=== PATIENT | female | born 1990 | race Caucasian/White ===

== ENCOUNTER 2021-10-30 08:48 | Outpatient (CLI) | payer OTHER, SELFPAY ==
--- NOTE | ~2021-10-30 | MMUS_ITS ---
EXAMINATION: MM diagnostic luca BI w donaldo, US breast LT limited HISTORY: Left inferior breast pain and left nipple discharge TECHNIQUE: Craniocaudal, mediolateral, and mediolateral oblique 3-D tomosynthesis images of the breas ts were performed and synthetic 2-D images were generated. CAD analysis was submitted and interpreted . High resolution limited left breast ultrasound was performed. COMPARISON: 02/21/2015 BREAST PARENCHYMAL COMPOSITION: There are scattered areas of fibroglandular density. FINDINGS: MAMMOGRAPHIC FINDINGS: There is no evidence of suspicious mass, calcification, or architectural distortion in either breast to suggest malignancy. There has been no suspicious interval change. No mammographic correlate is id entified for the patient's reported left breast pain or left nipple discharge. ULTRASOUND: There is a stable intramammary lymph node at the 3:00 location 4 cm from the nipple. No suspicious cy stic or solid mass is identified. No sonographic correlate is identified for the patient's left breas t pain or nipple discharge. IMPRESSION: 1. No specific mammographic or sonographic correlate is identified for the patient's left breast pain or left nipple discharge. Further evaluation at this time should be based on clinical assessment. Co ntinued follow-up physical examination is recommended. 2. Recommend routine screening mammography beginning at age 40. BI-RADS Category 2: Benign finding(s). Reviewed, dictated and finalized at location A. STANT RESEARCH SCIENTIST IMPRESSION: 1. No specific mammographic or sonographic correlate is identified for the reema ent's left breast pain or left nipple discharge. Further evaluation at this smith e should be based on clinical assessment. Continued follow-up physical examinat ion is recommended. 2. Recommend routine screening mammography beginning at age 40. BI-RADS Category 2: Benign finding(s).
== END 2021-10-30 08:49 ==
PROVIDERS: Visit Provider Advanced Practice Midwife
DX: N64.52 Nipple discharge (principal)
CPT/HCPCS: 76642; 77062; 77066; G0279

== ENCOUNTER 2021-11-21 15:59 | Emergency (ER) | payer OTHER, SELFPAY ==
--- NOTE | ~2021-11-21 | CT_ITS ---
EXAMINATION: CT abdomen pelvis wo con DATE: 11/21/2021 20:16 INDICATION: Right flank pain for one week. Hematuria. TECHNIQUE: Computed tomography (CT) of the abdomen and pelvis was performed without intravenous contr ast. Automated exposure control and iterative reconstruction technique were employed. Exam dose: 440 .79 mGy-cm total exam DLP. COMPARISON: 05/25/2017 CT abdomen pelvis with IV contrast material FINDINGS: The lung bases are clear. Normal heart size. No pericardial or pleural effusion. The liver, gallbladder, bile ducts, pancreas and pancreatic duct are unremarkable. Splenic size is wi thin normal range. No adrenal mass lesion. No urinary tract calculus or hydroureteronephrosis. No renal mass lesion. The urinary bladder, uterus and adnexal areas are unremarkable. Normal caliber of the abdominal aorta. No intraperitoneal or retroperitoneal or pelvic mass lesion or adenopathy or ascites. Normal appendix. No bowel obstruction or intraperitoneal free air. Very small fat-containing umbilical hernia. Mild bilateral hip osteoarthritis. No suspicious osteolytic or osteoblastic lesions. IMPRESSION: No urinary tract calculus or hydroureteronephrosis Normal appendix Reviewed, dictated and finalized at [facility]. Reviewed, dictated and finalized at location A. E SHIFTER
[2021-11-21 16:01] VITALS: BP 125/81; PULSE 92; RESP 15; TEMP 37.1; O2SAT 99
--- NOTE | 2021-11-21 18:55 | ED.GENADULT ---
HPI - General Adult General Chief complaint: Urogenital-Female Stated complaint: poss kidney infection Time Seen by Provider: 11/21/21 18:35 History of Present Illness HPI narrative: 31-year-old female presenting to the emergency department for evaluation of back pain for approximately 1 week and burning urination for the last few days. 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 Patient was referred to the emergency department for further work-up. Patient was not started on antibiotics from the [employer] office. Patient reports he did have Covid in the beginning of the year. Patient states today she did develop some cough and some nasal congestion. Patient states she did not have any of the symptoms with her recent Covid infection. Related Data Allergies Allergy/AdvReac Type Severity Reaction Status Date / Time No Known Allergies Allergy Verified 11/04/18 18:25 Review of Systems Review of Systems: CONSTITUTIONAL: Denies fever, chills, or sweats. EYES: Denies visual changes, redness, or discharge. ENT: Denies rhinorrhea, congestion, sore throat, or otalgia. CARDIOVASCULAR: Denies chest pain, palpitations, or edema. RESPIRATORY: Denies cough or dyspnea. GASTROINTESTINAL: Denies abdominal pain, nausea, vomiting, or diarrhea. GENITOURINARY: Flank pain and burning with urination SKIN: Denies rash or itching. MUSCULOSKELETAL: Denies back pain, joint pain, or myalgia. NEUROLOGIC: Denies headache, numbness, or weakness. PSYCHIATRIC: Denies anxiety or depression. Exam Narrative: APPEARANCE: Well appearing, no pain, no distress, well-nourished. HEAD: normocephalic, atraumatic. EYES: PERRLA/EOMI, conjunctivae clear. NECK: Supple. No adenopathy, no masses. RESPIRATORY: Airway patent, respirations nonlabored. Clear to auscultation bilaterally, no rales, rhonchi, wheezing. CARDIOVASCULAR: Regular rate and rhythm without murmurs rubs or gallops. ABDOMINAL: Reproducible flank pain to percussion MUSCULOSKELETAL: Moves all extremities. . NEURO: Alert. Cranial nerves II through XII intact. SKIN: Warm, dry. Normal Color Course Course Emergency Course: Patient did have some hematuria. Patient was complaining of intermittent sharp flank pain so a CT to rule out ureteral calculi was ordered. CT showed no evidence of ureteral calculi. Patient was updated the results of the imaging and labs. Patient will be started on antibiotics for a presumed urinary tract infection. Urine culture is pending. All questions and concerns were addressed. Vital Signs Vital signs: Vital Signs Temperature 98.7 F 11/21/21 16:01 Pulse Rate 92 11/21/21 16:01 Respiratory Rate 15 11/21/21 16:01 Blood Pressure 125/81 11/21/21 16:01 Pulse Oximetry 99 11/21/21 16:01 Temperature 98.7 F 11/21/21 16:01 Pulse Rate 96 11/21/21 19:36 Respiratory Rate 18 11/21/21 19:36 Blood Pressure 132/74 11/21/21 19:36 Pulse Oximetry 99 11/21/21 19:36 Medical Decision Making Vital Signs Vital Signs: Vital Signs Temperature 98.7 F 11/21/21 16:01 Pulse Rate 92 11/21/21 16:01 Respiratory Rate 15 11/21/21 16:01 Blood Pressure 125/81 11/21/21 16:01 Pulse Oximetry 99 11/21/21 16:01 Temperature 98.7 F 11/21/21 16:01 Pulse Rate 96 11/21/21 19:36 Respiratory Rate 18 11/21/21 19:36 Blood Pressure 132/74 11/21/21 19:36 Pulse Oximetry 99 11/21/21 19:36 Lab Data Lab results reviewed: Yes I reviewed the patient's lab results. Result diagrams: 11/21/21 19:28 11/21/21 19:28 Labs: Lab Results 11/21/21 11/21/21 11/21/21 Range/Units 19:28 19:28 19:29 WBC 8.4 (4.5-10.0) K/mm3 RBC 4.20 (4.2-5.4) M/mm3 Hgb 11.3 L (12.0-15.0) g/dL Hct 34.9 L (37.0-47.0) % MCV 83.1 (80-100) fl MCH 26.9 (26-34) pg MCHC 32.4 (32-36) g/dl RDW 14.8 H (11.5-14.5) % Plt Count 220 (150-375) k/mm3 MPV
[2021-11-21 19:36] VITALS: BP 132/74; PULSE 96; RESP 18; O2SAT 99
[2021-11-21 19:41] LABS: Basophils Percent Auto 0.5 % (0.2-1.2); Eosinophils Absolute Auto 0.1 K/mm3 (0-0.3); Eosinophils Percent Auto 0.8 % (0-4.4); Hematocrit 34.9 % (37.0-47.0); Hemoglobin 11.3 g/dL (12.0-15.0); Immature Granulocyte Absolute 0.03 K/mm3 (0.00-0.031); Immature Granulocyte Percent A 0.4 % (0-0.5); Lymphocytes Absolute Auto 1.58 K/mm3 (0.9-3.2); Lymphocytes Percent Auto 18.7 % (18.3-44.2); Mean Corpuscular HGB Conc 32.4 g/dl (32-36); Mean Corpuscular Hemoglobin 26.9 pg (26-34); Mean Corpuscular Volume 83.1 fl (80-100); Mean Platelet Volume 9.3 fl (7.4-10.4); Neutrophils Absolute Auto 5.7 K/mm3 (1.3-6.7); Neutrophils Percent Auto 67.6 % (45.5-73.1); Platelet Count Result 220 k/mm3 (150-375); Red Cell Distribution Width 14.8 % (11.5-14.5); White Blood Count 8.4 K/mm3 (4.5-10.0)
[2021-11-21 19:49] LABS: Add Urine Microscopic? YES; Appearance Urine Cloudy (Clear); Bilirubin Urine Negative (Negative); Blood Urine Negative (Negative); Color Urine Yellow (Yellow); Glucose Urine UA Negative (Negative); Ketones Urine Trace mg/dL (Negative); Leukocyte Esterase Ur 3+ LEU/UL (Negative); Mucus Urine Rare /lpf; Nitrate Urine Negative (Negative); Protein Urine Negative (Negative); Specific Grav Ur 1.006 (1.001-1.035); Squamous Epithelial Cell Urine Occasional /hpf (Few); Urobilinogen Urine Negative mg/dL (<2.0); WBC Urine >75 /hpf
[2021-11-21 19:53] LABS: Alanine Aminotransferase 20 U/L (4-35); Albumin Level 4.3 g/dL (3.5-5.1); Alkaline Phosphatase 72 U/L (38-126); Anion Gap 8 mmol/L (8-16); Aspartate Amino Transferase 29 U/L (14-36); Bilirubin,Total 0.5 mg/dL (0.2-1.3); Blood Urea Nitrogen 7 mg/dL (7-17); Calcium 9.3 mg/dL (8.4-10.2); Carbon Dioxide 29 mmol/L (22-30); Chloride 99 mmol/L (98-107); Estimated CRCL calculation 80 ml/min; Estimated Glomerular Filt Rate > 60; Glucose 101 mg/dL (65-110); Potassium 4.1 mmol/L (3.4-5.0); Sodium 136 mmol/L (137-145)
[2021-11-21] MEDS: CEPHALEXIN 500 MG CAPSULE PO (20:26)
[2021-11-21] MEDS: PHENAZOPYRIDINE HCL 100 MG TABLET PO (20:26)
== END 2021-11-21 21:07 | disposition home or self-care (01) ==
PROVIDERS: Emergency Provider Emergency Medicine; PCP Family Medicine
DX: N39.0 Urinary tract infection, site not specified (principal)
CPT/HCPCS: 36415; 74176; 80053; 81001; 81025; 85025; 87077; 87086; 87186; 99284; A9270

== ENCOUNTER → 2022-10-14 09:13 | Outpatient (CLI) | payer OTHER, SELFPAY ==
--- NOTE | ~2022-10-14 | MMUS_ITS ---
EXAMINATION: MM diagnostic luca BI w donaldo, US breast LT limited HISTORY: Probable left breast abnormality. TECHNIQUE: Additional 3-D tomosynthesis images of the breasts were performed and synthetic 2-D images were generated. CAD analysis was submitted and interpreted. High resolution Limited left breast ultr asound was performed. COMPARISON: Comparison to multiple prior studies sequentially, with oldest reviewed study dated 02/21. BREAST PARENCHYMAL COMPOSITION: The breasts are heterogeneously dense, which may obscure small masses . FINDINGS: MAMMOGRAPHIC FINDINGS: There are no suspicious masses, calcifications or architectural distortion in either breast to sugges t malignancy. ULTRASOUND: Limited left breast ultrasound: No discrete mass identified in the area of palpable concern. Near the areola there is a 4 mm cyst. IMPRESSION: 1. No evidence for malignancy in either breast. 2. Routine yearly screening mammogram and regular clinical breast examination are recommended. BI-RADS Category 2: Benign finding(s). Reviewed, dictated and finalized at location A. CERTIFICATION SPECIALIST IMPRESSION: 1. No evidence for malignancy in either breast. 2. Routine yearly screening mammogram and regular clinical breast examination a re recommended. BI-RADS Category 2: Benign finding(s).
== END ==
PROVIDERS: PCP Family Medicine; Visit Provider Nurse Practitioner
DX: N63.0 Unspecified lump in unspecified breast (principal)
CPT/HCPCS: 76642; 77062; 77066; G0279

== ENCOUNTER 2025-02-02 09:35 | Emergency (ER) | payer OTHER, SELFPAY ==
[2025-02-02 09:48] VITALS: BP 123/79; PULSE 60; RESP 18; TEMP 36.6; O2SAT 100
--- NOTE | 2025-02-02 10:01 | ED.URI ---
HPI - URI/Sore Throat General Chief Complaint: Upper Respiratory Infection Stated Complaint: sinus infection/head swelling Time Seen by Provider: 02/02/25 10:01 Source: patient Mode of arrival: ambulatory Limitations: no limitations History of Present Illness HPI Narrative: 35-year-old female presents with complaint of nasal congestion, postnasal drainage for 1 day. Afebrile. Has not taking any [id number] medications to treat congestion. Keep patient concerned she has sinus infection. denies cough, chest congestion. No chest pain or shortness breath. All systems reviewed and negative except as noted above. Related Data Home Medications ?Medication ?Instructions ?Recorded ?Confirmed ?Last Taken ?Type multivitamin 1 tablet PO DAILY 08/04/24 08/04/24 Unknown History Allergies Allergy/AdvReac Type Severity Reaction Status Date / Time No Known Allergies Allergy Verified 02/02/25 09:52 Review of Systems Review of Systems: CONSTITUTIONAL: Denies fever, chills, or sweats. EYES: Denies visual changes, redness, or discharge. ENT: Reports rhinorrhea, congestion, sinus pressure. Denies sore throat, or otalgia. CARDIOVASCULAR: Denies chest pain, palpitations, or edema. RESPIRATORY: Denies cough or dyspnea. GASTROINTESTINAL: Denies abdominal pain, nausea, vomiting, or diarrhea. GENITOURINARY: Denies dysuria or hematuria. SKIN: Denies rash or itching. MUSCULOSKELETAL: Denies back pain, joint pain, or myalgia. NEUROLOGIC: Denies headache, numbness, or weakness. PSYCHIATRIC: Denies anxiety or depression. All other systems reviewed are negative, except as documented in HPI. PMFSH Social History Social History Smoking status: Never smoker Living arrangements: with family Spiritual care concerns: No Comments At time of signature, agree with nursing past medical, surgical, social and family history. There is no relevant family history pertinent to the presenting complaint. Exam Narrative: GENERAL: This is a well-nourished, well-developed patient, in no apparent distress. HEAD: normocephalic, atraumatic. EYES: PERRL. Sclera clear/white. Vision is grossly intact. EARS: External ears normal, auditory canals clear and without drainage, TMs normal without perforation. Hearing grossly intact. NOSE: External nose normal with congestion, clear nasal drainage. No sinus tenderness on palpation THROAT: Mucous membranes moist, postnasal drainage without erythema or swelling NECK: Neck supple, non-tender without lymphadenopathy, masses or thyromegaly. CARDIOVASCULAR: Regular rate and rhythm without murmurs, gallops, or rubs. RESPIRATORY: Clear to auscultation. Breath sounds equal bilaterally. No wheezes, rales, or rhonchi. SKIN: warm, Dry, intact with no suspicious lesions or rash, good texture and turgor. NEURO: awake, alert, and oriented to person, place and time. There were no obvious focal neurologic abnormalities. EXTREMITIES: No joint tenderness, effusion, or edema noted. Course Course Level of Care: Express Care Visit Vital Signs Vital signs: Vital Signs Temperature 36.6 C 02/02/25 09:48 Pulse Rate 60 02/02/25 09:48 Respiratory Rate 18 02/02/25 09:48 Blood Pressure 123/79 02/02/25 09:48 Pulse Oximetry 100 02/02/25 09:48 Oxygen Delivery Room Air 02/02/25 09:48 Temperature 36.6 C 02/02/25 09:48 Pulse Rate 60 02/02/25 09:48 Respiratory Rate 18 02/02/25 09:48 Blood Pressure 123/79 02/02/25 09:48 Pulse Oximetry 100 02/02/25 09:48 Oxygen Delivery Room Air 02/02/25 09:48 reviewed MDM - URI/Sore Throat MDM Narrative Medical decision making narrative: will treat viral sinusitis with steroids. Recommend wmwz-jji-zotoybw decongestant and antihistamine. Please be advised this is a medical document. It is intended for [id number]-jysl communication. It is written in medical language and may contain unfamiliar abbreviations or verbiage. Medical documents are intended to carry relevant information, facts as evident, and the clinical opinion of the practitioner at the time of the encounter. This report may have been done utilizing a voice recognition system. Attempts have been made to correct errors. However, there may be uncorrected grammatical, spelling, and recognition errors present. The file time of this note does not necessarily represent the time of service. Discharge Plan Discharge Clinical Impression: Acute viral sinusitis Patient Disposition: Home Condition: Stable Instructions: Antibiotic Form, Sinusitis (ED) Additional Instructions: your symptoms are viral and may last 10-14 days. Take steroids as prescribed. Continue taking a daily antihistamine such as Claritin or Zyrtec. Use an pqoa-hmx-tuudtyq nasal spray such as Flonase or Nasacort. Use as directed on packaging. Drink at least 64 oz water a day. Place cool mist humidifier in bedroom where you sleep. Follow-up with your primary care physician if symptoms are not improving. Patient Language: Luxembourgish Prescriptions: New methylprednisolone [Medrol (Good)] 4 mg tablets,dose pack See Rx Instructions PO .COMPLEX Qty: 21 0RF Rx Instructions: orally per package directions No Action multivitamin Tablet 1 tablet PO DAILY Follow-up/Referrals: Emilee,Florentino Perrin MD [Primary Care Provider] - Time of Disposition: 10:14
--- OUTSIDE RECORDS SUMMARY | 2025-02-02 10:43 | XMS_ITS | Encounter Summary ---
Author Organization [facility] Healthcare Address [address] [place] [id number] Care Team Providers Care Tour Consultant Name Role Phone Florentino Hebert DO Primary Care Provider + No, Physician Unavailable Encounter Details Date Type Department Care Team ([facility] st Contact Info) Description 01/27/2025 Results Follow-Up [facility] Medical [facility] Primary Care [address] [phone] Florentino Hebert DO [facility] [address] Social History Tobacco Use Types Packs/Day Years Used Date Smoking Tobacco: Former Cigarettes Q uit: 2020 Smokeless Tobacco: Never Alcohol Use Standard Drinks/Week Comments Yes 2 (1 standard drink = 0.6 oz pur e alcohol) AUDIT-C Answer Date Recorded Q1: How often do you have a drink containing alcohol? Never 05/02/2022 Q2: How many drinks containi ng alcohol do you have on a typical day when you are drinking? Patient does not drink Q3: How often do you have si x or more drinks on one occasion? Never 05/02/2022 PHQ-2 Answer Date Recorded PHQ-2 Total Score (If total score is 3 or more points, staff should administer the PHQ-9) 0 12/30/2023 Comments No Sex and Gender Information Value Date Recorded Sex Assigned at Not on file Legal Sex Female 9:37 AM CDT Gender Identity Not on file Sexual Orientation Not on file documented as of this encounter Plan of Treatment Not on file documented as of this encounter Visit Diagnoses Not on filedocumented in this encounter Care Teams Tour Consultant Relationship Specialty Start Date End Date Florentino Hebert DO [address] [address] PCP - General Family Medicine 01/23/22 No, Physician 11/21/21 documented as of this encounter
--- OUTSIDE RECORDS SUMMARY | 2025-02-02 10:43 | XMS_ITS | Encounter Summary ---
Author Organization [facility] Healthcare Address [address] [place] [id number] Care Team Providers Care Test Department Helper Name Role Phone Florentino Hebert DO Primary Care Provider + No, Physician Unavailable Encounter Details Date Type Department Care Team (Late st Contact Info) Description 06/17/2024 Orders Only [facility] Health Information Management [address] [place] [id number] Florentino Hebert DO [facility] [address] Social History Tobacco Use Types [...] on file documented as of this encounter Procedures Procedure Name Priority Date/Time Associated Diagnosis Comments SCAN - LABS 06/17/2024 documented in this encounter Results * SCAN - LABS (06/17/2024) Florentino Hebert DO Final Re sult documented in this encounter Visit Diagnoses Not on filedocumented in this encounter Care Teams Test Department Helper Relationship Specialty [place] [address] [place] [id number] PCP - General Family Medicine 01/23/22 No, Physician 11/21/21 documented as of this encounter
--- OUTSIDE RECORDS SUMMARY | 2025-02-02 10:43 | XMS_ITS | Data Portability ---
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 Patient will come back in a year unless there are new symptoms. [email or web address] Not available 06/17/2024 09:58:34 Plan of Treatment Reminders Order Date Submit Date Provider Last Modified By Organization Details Last Modified Time Details Appointments None recorded. Lab CBC w/ auto diff 2023 024 [facility] (Lab), [address] [place], [address], 4 03:42:19 CMP, serum or plasma 2023 024 [facility] (Lab), [address] [place], [address], 4 03:42:18 lipid panel, blood 2023 024 [facility] (Lab), [address] [place], [address], 4 03:42:18 TSH, serum or plasma 2023 024 [facility] (Lab), [address] [place], [address], 4 03:42:19 25-hydroxyv itamin D2 + 25-hydroxyv itamin D3, QN, serum or plasma 2023 [facility] (Lab), [address], [place], [address], 4 03:42:20 Referral None recorded. Procedures None recorded. Surgeries robotic assisted hysterectom y with salpingecto my (SURG) 2023 024 [id number], [address], [place], [address], 4 13:49:29 Imaging US, pelvis 2023 [email or web address], [address], [place], [address], 4 17:57:32 US, transvagina l 2023 024 [facility], [address], [place], [address], 4 18:13:54 Medication Orders None recorded. Patient TargetsNo targets recorded. Patient InstructionsNo instructions recorded. Reason for Referral None Reported. Results Created Date Observation Date Name Description Value Unit Range Abnormal Flag Note LastModifiedBy Organization Detail LastModifiedTime 12/17/19 24 12/17/2023 IMAGE GUIDE D PAP AND HPV REGAR DLESS image guided Pap, HPV regardless of Pap result SEE RESULT S BELOW CASE REPOR T: Cytol ogy Gynec ologi charlette Repor t Case: [id number] Autho karlo g Provi gwen: Gabe Drew MD Colle cted: 12/17 1407 Order ing Locat ion: [place] Patho logy Recei kike: 12/18 0016 First Scree n: Nogail ni, Moham ed, CT Rescr een: Pablo mpamiley ak, Flex ay, CT Speci men: Scree rni Pap - Image d, Cervi x STATE MENT OF ADEQU ACY: Satis facto ry for evalu ation Trans forma tion zone compo nent prese nt FINAL DIAGN OSIS: Negat rita for Intra epith elial Lesio n or Paulie jose (NIL) . Elect jason mims hesham d by Pablo elizabeth, Flex ay, CT on 2023 at 8:09 PM ----- ----- ----- ----- ----- ----- ----- ----- ----- ----- ----- ----- ----- ----- ----- ----- ----- ---- HPV RESUL TS: HPV mRNA E6/E7 : No HPV mRNA Detec nic NOTE: This high risk HPV mRNA assay detec ts fourt een high- risk HPV types (16, 18, 31, 33, 35, 39, 45, 51, 52, 56, 58, 59, 66, 68) witho ut diffe renti ation . COMME NT: This speci men was revie wed by a Cytot echno logis t and/o r Patho logis t (as indic ated in this repor t) after evalu ation using the Thinp rep Imagi ng Syste m. CLINI CHARLETTE INFOR MATIO N: Menst rual Statu s: LMP (if appli cable ): Clini charlette Histo ry/Pr eviou s Pap: Type of Neopl jacque (if appli cable ): Signi fican t Clini charlette Findi ngs: Other Histo ry: Hormo lyle (if appli cable ): PAP EDUCA WOOD L NOTE: The Pap Test is a scree rin test with an inher ent false negat rita rate. Liqui d-bas ed sampl ing may decre ase, but will not elimi jeronimo, false negat rita resul ts. A negat rita resul t does not precl ude the prese nce and/o r devel opmen t of disea se, since the prese nce of abnor mal cells in the sampl e depen ds on the locat ion of the lesio n and sampl ing techn ique. Nara nued regul ar scree rin is the best metho d of cance r preve ntion . If repor nic cytol ogic findi ng do not corre late with physi charlette and/o r histo rical findi ngs, furth er inves tigat ion is recom ricci d, as clini darlene elena nted. Not Available [facility] (Lab) [address] [place], [address], 12/22/2023 21:15:07 06/17/20 24 06/17/2024 LIPID PANEL ,AMA (LDL- CALC) total cholesterol 240 mg/dL 0-199 high Not Available [facility] (Lab) [address] [place], [address], 06/18/2024 03:42:18 06/17/20 24 06/17/2024 LIPID PANEL ,AMA (LDL- CALC) triglyceride s 62 mg/dL 0-150 NCEP Refer ence Value s for Trigl yceri deven: Laura l: <150 mg/dL Borde rline High: 150 - 199 mg/dL High: 200 - 499 mg/dL Very High: >/= 500 mg/dL Not Available [facility] (Lab) [address] [place], [address], 06/18/2024 03:42:18 06/17/20 24 06/17/2024 LIPID PANEL ,AMA (LDL- CALC) HDL cholesterol 68 mg/dL >40 Not Available [facility] (Lab) [address] [place], [address], 06/18/2024 03:42:18 06/17/20 24 06/17/2024 LIPID PANEL ,AMA (LDL- CALC) LDL cholesterol 157 mg/dL 0-99 high Cutof f value s recom ricci d by the Natio nal Bri stero l Educa tion Progr am: ALBINO ABLE: Bri stero l <200 mg/dL LDL <100 mg/dL BORDE RLINE : Bri stero l 200-2 39 mg/dL LDL 101-1 59 mg/dL HIGHE R RISK: Bri stero l >240 mg/dL LDL >160 mg/dL , HDL <40 mg/dL Not Available [facility] (Lab) [address], [place], [address], 06/18/2024 03:42:18 06/17/20 24 06/17/2024 LIPID PANEL ,AMA (LDL- CALC) non-HDL cholesterol 172 mg/dL no refere nce range A reaso nable goal for non-H DL bri stero l is one that is 30 mg/dL highe r than the LDL bri stero l goal. Not Available [facility] (Lab) [address], [place], [address], 06/18/2024 03:42:18 06/17/20 24 06/17/2024 LIPID PANEL ,AMA (LDL- CALC) chol/HDL ratio 3.5 . 0.0-5. 0 On February 18, 2023, [facility] labor atori es denney ed the equat ion for calcu latin g estim ated low-d ensit y lipop rotei n-cho leste rol (LDL- C) from the Fried kaitlin equat ion to the Elva erasto/Haley fraser equat ion. This new equat ion is only valid for lipid panel s with trigl yceri deven < 400 mg/dL . Pauli es marv demon strat ed that this new equat ion will impro ve the accur acy of LDL-C , espec ially in scena lawson when LDL-C edgardo ntrat ions are relat ively low (< 100 mg/dL ), trigl yceri deven are eleva nic, or patie nt is non-f astin g. Refer ences : - Eloy Borja, Elder Ceballos , Chely bowling, French Chester, French hargrove, Luis Alfredo [facility] , and Herman Martins . 2013. Comp ariso n of a Novel Metho d vs the Fried kaitlin Equat ion for Estim ating Low-D ensit y Lipop rotei n Bri stero l Level s from the Stand theresa Lipid Profskip espino. JANINA: The Journ al of the Ameri can Medic al Assoc iatio n 310 (49): 2060- . - Cliff cazares V, Michelle J, Karine cazares A, Hemanth M, Kusum castillo R, Elijah cazares E, William menendez RS, Eliezer SR, Elva n SS. Fast ing Versu s Nonfa sting and Low-D ensit y Lipop rotei n Bri stero l Accur acy. Circu latio n. 2017Oct 28;137 (1):1 0-19. Not Available [facility] (Lab) [address], [place], [address], 06/18/2024 03:42:18 06/17/20 24 06/17/2024 CMP(C OMPRE HENSI VE METAB OLIC PANEL ) sodium 138 mmol/ L 133-14 6 Not Available [facility] (Lab) [address] [place], [address], 06/18/2024 03:42:18 06/17/20 24 06/17/2024 CMP(C OMPRE HENSI VE METAB OLIC PANEL ) potassium 4.3 mmol/ L 3.5-5. 1 Not Available [facility] (Lab) [address] [place], [address], 06/18/2024 03:42:18 06/17/20 24 06/17/2024 CMP(C OMPRE HENSI VE METAB OLIC PANEL ) chloride 103 mmol/ L 98-107 Not Available [facility] (Lab) [address] [place], [address], 06/18/2024 03:42:18 06/17/20 24 06/17/2024 CMP(C OMPRE HENSI VE METAB OLIC PANEL ) carbon dioxide 28 mmol/ L 21-31 Not Available [facility] (Lab) [address] [place], [address], 06/18/2024 03:42:18 06/17/20 24 06/17/2024 CMP(C OMPRE HENSI VE METAB OLIC PANEL ) anion gap 7 mmol/ L 4-13 Not Available [facility] (Lab) [address], [place], [address], 06/18/2024 03:42:18 06/17/20 24 06/17/2024 CMP(C OMPRE HENSI VE METAB OLIC PANEL ) blood urea nitrogen 12 mg/dL 7-25 Not Available [facility] (Lab) [address], [place], [address], 06/18/2024 03:42:18 06/17/20 24 06/17/2024 CMP(C OMPRE HENSI VE METAB OLIC PANEL ) creatinine 0.87 mg/dL 0.60-1 .30 Not Available [facility] (Lab) [address], [place], [address], 06/18/2024 03:42:18 06/17/20 24 06/17/2024 CMP(C OMPRE HENSI VE METAB OLIC PANEL ) egfrcr (CKD-epi 2020) 88 mL/mi n/1.7 3_m2 >=60 Not Available [facility] (Lab) [address], [place], [address], 06/18/2024 03:42:18 06/17/20 24 06/17/2024 CMP(C OMPRE HENSI VE METAB OLIC PANEL ) calcium 9.8 mg/dL 8.3-10 .5 Not Available [facility] (Lab) [address], [place], [address], 06/18/2024 03:42:18 06/17/20 24 06/17/2024 CMP(C OMPRE HENSI VE METAB OLIC PANEL ) glucose 77 mg/dL 70-100 Not Available [facility] (Lab) [address], [place], [address], 06/18/2024 03:42:18 06/17/20 24 06/17/2024 CMP(C OMPRE HENSI VE METAB OLIC PANEL ) protein, total 7.4 g/dL 6.4-8. 3 Not Available [facility] (Lab) [address], [place], [address], 06/18/2024 03:42:18 06/17/20 24 06/17/2024 CMP(C OMPRE HENSI VE METAB OLIC PANEL ) albumin 4.6 g/dL 3.5-5. 0 Not Available [facility] (Lab) [address], [place], [address], 06/18/2024 03:42:18 06/17/20 24 06/17/2024 CMP(C OMPRE HENSI VE METAB OLIC PANEL ) ALT 20 units /L 9-43 Not Available [facility] (Lab) [address], [place], [address], 06/18/2024 03:42:18 06/17/20 24 06/17/2024 CMP(C OMPRE HENSI VE METAB OLIC PANEL ) alkaline phosphatase 55 units /L 34-104 Not Available [facility] (Lab) [address], [place], [address], 06/18/2024 03:42:18 06/17/20 24 06/17/2024 CMP(C OMPRE HENSI VE METAB OLIC PANEL ) AST 26 units /L 13-39 Not Available [facility] (Lab) [address], [place], [address], 06/18/2024 03:42:18 06/17/20 24 06/17/2024 CMP(C OMPRE HENSI VE METAB OLIC PANEL ) bilirubin, total 1.0 mg/dL 0.2-1. 2 Not Available [facility] (Lab) [address], [place], [address], 06/18/2024 03:42:18 06/17/20 24 06/17/2024 CBC W/DIF F WBC 6.8 10'3/ uL 3.5-10 .5 Not Available [facility] (Lab) [address], [place], [address], 06/18/2024 03:42:19 06/17/20 24 06/17/2024 CBC W/DIF F RBC 4.65 10'6/ uL (based on docume nted legal sex) 3.80-5 .20 Not Available [facility] (Lab) [address], [place], [address], 06/18/2024 03:42:19 06/17/20 24 06/17/2024 CBC W/DIF F HGB 13.3 g/dL (based on docume nted legal sex) 11.6-1 5.4 Not Available [facility] (Lab) [address], [place], [address], 06/18/2024 03:42:19 06/17/20 24 06/17/2024 CBC W/DIF F HCT 40.2 % (based on docume nted legal sex) 34.0-4 5.0 Not Available [facility] (Lab) [address], [place], [address], 06/18/2024 03:42:19 06/17/20 24 06/17/2024 CBC W/DIF F MCV 86.5 fL 80.0-9 9.0 Not Available [facility] (Lab) [address], [place], [address], 06/18/2024 03:42:19 06/17/20 24 06/17/2024 CBC W/DIF F MCH 28.6 pg 27.0-3 4.0 Not Available [facility] (Lab) [address], [place], [address], 06/18/2024 03:42:19 06/17/20 24 06/17/2024 CBC W/DIF F MCHC 33.1 g/dL 32.0-3 5.5 Not Available [facility] (Lab) [address], [place], [address], 06/18/2024 03:42:19 06/17/20 24 06/17/2024 CBC W/DIF F RDW 14.6 % 11.0-1 5.0 Not Available [facility] (Lab) [address], [place], [address], 06/18/2024 03:42:19 06/17/20 24 06/17/2024 CBC W/DIF F plt 319 10'3/ uL 150-40 0 Not Available [facility] (Lab) [address], [place], [address], 06/18/2024 03:42:19 06/17/20 24 06/17/2024 CBC W/DIF F MPV 10.1 fL 8.8-12 .1 Not Available [facility] (Lab) [address], [place], [address], 06/18/2024 03:42:19 06/17/20 24 06/17/2024 CBC W/DIF F NRBC's 0.0 % 0.0 Not Available [facility] (Lab) [address], [place], [address], 06/18/2024 03:42:19 06/17/20 24 06/17/2024 CBC W/DIF F absolute NRBCs 0.0 10'3/ uL no refere nce range establ ished Not Available [facility] (Lab) [address], [place], [address], 06/18/2024 03:42:19 06/17/20 24 06/17/2024 CBC W/DIF F neutrophils 62.9 % 34.0-7 3.0 Not Available [facility] (Lab) [address], [place], [address], 06/18/2024 03:42:19 06/17/20 24 06/17/2024 CBC W/DIF F lymphocytes 26.0 % 15.0-5 0.0 Not Available [facility] (Lab) [address] [facility] [address], [place], [address], 06/18/2024 03:42:19 06/17/20 24 06/17/2024 CBC W/DIF F monocytes 8.6 % 1.0-15 .0 Not Available [facility] (Lab) [address], [place], [address], 06/18/2024 03:42:19 06/17/20 24 06/17/2024 CBC W/DIF F eosinophils 1.5 % 0.0-8. 0 Not Available [facility] (Lab) [address], [place], [address], 06/18/2024 03:42:19 06/17/20 24 06/17/2024 CBC W/DIF F basophils 0.7 % 0.0-2. 0 Not Available [facility] (Lab) [address], [place], [address], 06/18/2024 03:42:19 06/17/20 24 06/17/2024 CBC W/DIF F immature granulocytes 0.3 % no define d refere nce range Not Available [facility] (Lab) [address], [place], [address], 06/18/2024 03:42:19 06/17/20 24 06/17/2024 CBC W/DIF F absolute neutrophils 4.3 10'3/ uL 1.5-8. 0 Not Available [facility] (Lab) [address], [place], [address], 06/18/2024 03:42:19 06/17/20 24 06/17/2024 CBC W/DIF F absolute lymphocytes 1.8 10'3/ uL 1.0-4. 0 Not Available [facility] (Lab) [address], [place], [address], 06/18/2024 03:42:19 06/17/20 24 06/17/2024 CBC W/DIF F absolute monocytes 0.6 10'3/ uL 0.2-1. 0 Not Available [facility] (Lab) [address], [place], [address], 06/18/2024 03:42:19 06/17/20 24 06/17/2024 CBC W/DIF F absolute eosinophils 0.1 10'3/ uL 0.0-0. 6 Not Available [facility] (Lab) [address], [place], [address], 06/18/2024 03:42:19 06/17/20 24 06/17/2024 CBC W/DIF F absolute basophils 0.1 10'3/ uL 0.0-0. 3 Not Available [facility] (Lab) [address], [place], [address], 06/18/2024 03:42:19 06/17/20 24 06/17/2024 CBC W/DIF F absolute immature granulocytes 0.0 10'3/ uL 0.00-0 .10 2023 2:21 AM: P indic ates parti al resul ts on a panel have been relea sed. Addit ional resul ts will follo w. 2023 2:21 AM: This resul t has been final verif ied. No addit ional or denney ed resul ts are expec nic. Not Available [facility] (Lab) [address], [place], [address], 06/18/2024 03:42:19 06/17/20 24 06/17/2024 TSH, REFLE X FREE T4 TSH 1.78 uIU/m L 0.30-5 .33 Not Available [facility] (Lab) [address] [facility] [address], [place], [address], 06/18/2024 03:42:19 06/17/20 24 06/17/2024 VITAM IN D, 25-OH (TOTA L D2/D3 ) vitamin D, 25-hydroxy, total 36.5 NG/mL 30.0-1 00.0 Sugge stive of Defic iency : <20 ng/mL Sugge stive of Insuf ficie ncy: 20-29 ng/mL Sugge stive of Suffi cienc y: 30-10 0 ng/mL Sugge stive of Toxic ity: >150 ng/mL Not Available [facility] (Lab) [address], [place], [address], 06/18/2024 03:42:20 06/17/20 24 06/17/2024 IMAGE GUIDE D PAP AND HPV REGAR DLESS image guided Pap, HPV regardless of Pap result SEE RESULT S BELOW CASE REPOR T: Cytol ogy Gynec ologi charlette Repor t Case: [id number] Autho karlo hatch Provi gwen: Gabe Drew MD Colle cted: 06/17 1007 Order ing Locat ion: [place] Patho logy Recei kike: 06/18 0915 First Scree n: Juanita Rios, CT Rescr een: Marina Martins, CT Speci men: Jorgitojonathan gar Pap - Image d, Cervi x STATE MENT OF ADEQU ACY: Satis facto ry for evalu ation Trans forma tion zone compo nent prese nt ----- ----- ----- ----- ----- ----- ----- ----- ----- ----- ----- ----- ----- ----- ----- ----- ----- ---- FINAL DIAGN OSIS: Negat rita for Intra epith elial Susana maurer or Paulie garcia (NIL) . Elect jason huston by Marina Martins, CT on 2023 at 1:09 PM ----- ----- ----- ----- ----- ----- ----- ----- ----- ----- ----- ----- ----- ----- ----- ----- ----- ---- HPV RESUL TS: HPV mRNA E6/E7 : No HPV mRNA Detec nic NOTE: This high risk HPV mRNA assay detec ts fourt een high- risk HPV types (16, 18, 31, 33, 35, 39, 45, 51, 52, 56, 58, 59, 66, 68) witho ut diffe renti ation . COMME NT: This speci men was revie wed by a Cytot echno logis t and/o r Patho logis t (as indic ated in this repor t) after evalu ation using the Thinp rep Imagi ng Syste m. CLINI CHARLETTE INFOR MATIO N: Menst rual Statu s: LMP (if appli cable ): Clini charlette Histo ry/Pr eviou s Pap: Type of Neopl jacque (if appli cable ): Signi fican t Clini charlette Findi ngs: Other Histo ry: Hormo lyle (if appli cable ): PAP EDUCA WOOD L NOTE: The Pap Test is a scree rin test with an inher ent false negat rita rate. Liqui d-bas ed sampl ing may decre ase, but will not elimi jeronimo, false negat rita resul ts. A negat rita resul t does not precl ude the prese nce and/o r devel opmen t of disea se, since the prese nce of abnor mal cells in the sampl e depen ds on the locat ion of the lesio n and sampl ing techn ique. Nara nued regul ar scree rin is the best metho d of cance r preve ntion . If repor nic cytol ogic findi ng do not corre late with physi charlette and/o r histo rical findi ngs, furth er inves tigat ion is recom ricci d, as clini darlene elena nted. Not Available [facility] (Lab) [address], [place], [address], 06/24/2024 14:14:06 06/24/20 24 06/24/2024 US, pelvi s No observ ation record ed. [email or web address], [place], [address], 06/24/2024 18:13:44 06/24/20 24 06/24/2024 US, trans vagin al No observ ation record ed. [email or web address] [address], [place], [address], 06/24/2024 18:13:54 06/24/20 24 06/24/2024 US, pelvi s No observ ation record ed. [email or web address] [address], [place], [address], 06/24/2024 21:20:21 Result Notes None recorded. Procedures Surgical History Date Name Laterality Status Provider Name and Address Organization Details Recorded Time 06/17/20 24 Date of Last Pap Smear completed Nhi Zhou [facility] 07/10/2024 09:23:50 12/26/19 24 Date of Last Mammogram completed Clarice Glover [facility] 06/17/2024 10:05:14 12/12/19 23 LEEP completed Presley Drew MD [address], [place], [address], [facility] 12/12/2022 21:11:55 12/12/19 23 Colposcopy completed Nhi Zhou [facility] 07/10/2024 11:35:08 12/12/19 23 LEEP [facility] 06/16/2023 09:23:25 10/24/20 22 Colposcopy completed Corrine Pérez DRE- [address], [place], [address], [facility] 10/24/2022 10:50:02 10/24/20 22 Colposcopy [facility] 06/16/2023 09:23:08 10/27/19 19 Breast Surgery completed Kala Amy [facility] 06/16/2023 11:04:50 10/27/19 11 Tubal Ligation completed Wendibrooke Chaney [facility] 10/01/2021 14:24:48 10/27/19 05 Dilation and Curettage completed Nhi Zhou [facility] 10/24/2022 20:25:25 Imaging Results Imaging Date Name Status LastModified by Organization Details LastModified Time 06/24/2024 US, pelvis completed [email or web address] [place] [address], [place], [address], 06/24/2024 18:13:44 06/24/2024 US, transvaginal completed [email or web address] [place] [address], [place], [address], 06/24/2024 18:13:54 06/24/2024 US, pelvis completed [email or web address] [address], [place], [address], 06/24/2024 21:20:21 Procedure Notes None recorded. Medical Equipment None Reported. Allergies No known drug allergies Medications Name Sig Start Date Stop Date Status Note LastModified by Organization Details LastModified Time amoxicillin 500 mg capsule 12/17 completed Not Available Not Available Not Available azithromyci n 250 mg tablet 10/24 completed Not Available Not Available Not Available ibuprofen 800 mg tablet Take 1 tablet 2 hours before the procedure . 12/19 completed Not Available Not Available Not Available fluconazole 150 mg tablet Take 1 tablet by mouth now, repeat in 7 days 10/07 completed Not Available Not Available Not Available ondansetron HCl 8 mg tablet Take 1 tablet 2 hours before the procedure . 12/19 completed Not Available Not Available Not Available prednisone 20 mg tablet 10/24 completed Not Available Not Available Not Available metronidazo le 500 mg tablet Take 1 tablet every 12 hours by oral route for 7 days. 12/17 completed Not Available Not Available Not Available hydrocodone 10 mg-acetamin ophen 325 mg tablet Take 1 tablet 2 hours before the procedure . 12/19 completed Not Available Not Available Not Available omeprazole 40 mg capsule,del ayed release 08/29 completed Not Available Not Available Not Available nystatin-tr iamcinolone 100,000 unit/gram-0 .1 % topical ointment APPLY TO THE AFFECTED AREA(S) BY TOPICAL ROUTE 2 TIMES PER DAY FOR 7 DAYS 10/07 completed Not Available Not Available Not Available alprazolam 0.5 mg tablet Take 1 tablet 2 hours before the procedure . 12/19 completed Not Available Not Available Not Available phenazopyri dine 100 mg tablet 08/29 completed Not Available Not Available Not Available cephalexin 500 mg capsule 08/29 completed Not Available Not Available Not Available oxybutynin chloride ER 5 mg tablet,exte nded release 24 hr TAKE 1 TABLET BY MOUTH EVERY DAY WITH MEALS 06/16 completed Not Available Not Available Not Available ceftriaxone 500 mg solution for injection Take 500 mg as needed by injection route as directed. 10/07 completed Not Available Not Available Not Available zolpidem 10 mg tablet 10/24 completed Not Available Not Available Not Available nitrofurant oin monohydrate /macrocryst als 100 mg capsule Take 1 capsule every 12 hours by oral route for 7 days. 10/07 completed Not Available Not Available Not Available Vitals Date Recorded Body height Body mass index (BMI) Body weight Systolic blood pressure Diastolic blood pressure Provider Name and Address Organization Details Last Updated DateTime 12/17/2023 161.93 cm 30.1 kg/m2 84659.79 g 101 mm[Hg] 61 mm[Hg] Wendi Fowler [facility] 14:12:29 Date Recorded Body height Body mass index (BMI) Body weight Systolic blood pressure Diastolic blood pressure Provider Name and Address Organization Details Last Updated DateTime 06/17/2024 161.93 cm 31 kg/m2 24790.03 g 115 mm[Hg] 72 mm[Hg] Clarice Glover [facility] 4 09:59:10 Date Recorded Body height Body mass index (BMI) Body weight Systolic blood pressure Diastolic blood pressure Provider Name and Address Organization Details Last Updated DateTime 07/10/2024 161.93 cm 29.4 kg/m2 66844.7 g 99 mm[Hg] 66 mm[Hg] Nhi Zhou [facility] 4 11:33:49 Date Recorded Body height Body mass index (BMI) Body weight Systolic blood pressure Diastolic blood pressure Provider Name and Address Organization Details Last Updated DateTime 08/12/2024 161.93 cm 29.9 kg/m2 65966.48 g 106 mm[Hg] 71 mm[Hg] Clarice Adalberto [facility] 4 15:15:49 Social History Question Answer Notes LastModified by Organizat ion Details LastModified Time Tobacco Smoking Status Former Smoker Adriana fermin, [facility] 06/16/2023 10:15:31 Do You Have An Advance Directive? No Information not available 10/01/2021 What Is Your Level Of Alcohol Consumption? Occasional Information not available 10/01/2021 How Many Years Have You Consumed Alcohol? 15 Information not available 10/01/2021 Are You Blind Or Do You Have Difficulty Seeing? No Information not available 10/01/2021 What Is Your Level Of Caffeine Consumption? Moderate Information not available 10/01/2021 How Much Tobacco Do You Chew? None Information not available 10/01/2021 In The 14 Days Before Symptom Onset, Have You Had Close Contact With A Laboratory-confir med COVID-19 While That Case Was Ill? No Information not available 10/01/2021 In The 14 Days Before Symptom Onset, Have You Had Close Contact With A Person Who Is Under Investigation For COVID-19 While That Person Was Ill? No Information not available 10/01/2021 Have You Been To An Area Known To Be High Risk For COVID-19? No Information not available 10/01/2021 Are You Deaf Or Do You Have Serious Difficulty Hearing? No Information not available 10/01/2021 What Type Of Diet Are You Following? REGULAR Information not available 10/01/2021 What Is The Highest Grade Or Level Of School You Have Completed Or The Highest Degree You Have Received? 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 Yes Information not available 10/01/2021 Do You Use Protection During Sex? No Information not available 10/01/2021 Do You Use Your Seat Belt Or Car Seat Routinely? No Information not available 10/01/2021 Do You Have Smoke And Carbon Monoxide Detectors In Your Home? Yes Information not available 10/01/2021 At What Age Did You Start Smoking Tobacco? 14 [email or web address] Information not available 10/24/2022 How Much Tobacco Do You Smoke? No [email or web address] Information not available 10/24/2022 Do You Feel Stressed (tense, Restless, Nervous, Or Anxious, Or Unable To Sleep At Night)? [id number] Information not available 10/01/2021 Do You Use Any Illicit Or Recreational Drugs? No Information not available 10/01/2021 Do You Use Sunscreen Routinely? No Information not available 10/01/2021 How Many Years Have You Smoked Tobacco? 12 [email or web address] Information not available 10/24/2022 Have You Used IV Drugs? No Information not available 10/01/2021 Sex: Unknown Functional Status Question Answer Note LastModified by Organizat ion Details LastModified Time Do you have difficulty walking or climbing stairs? No [email or web address] Information not available 06/16/2023 Are you able to walk? YESWOREST Information not available 10/01/2021 Are you able to care for yourself? Yes [email or web address] Information not available 06/16/2023 Do you have difficulty dressing or bathing? No [email or web address] Information not available 06/16/2023 What is your exercise level? Moderate Information not available 10/01/2021 Mental Status None recorded. Family History Relationship Description Onset Age of this Age Resolved Age Notes LastModified by Organization Details LastModified Time Unspecified Relation Malignant lymphoma matern al cousin [email or web address] Not available 08/12/2024 14:55:28 Unspecified Relation Family history unknown efrain Not available 2023 14:55:28 Paternal Uncle Malignant tumor of stomach efrain Not available 2023 14:55:28 Mother Diabetes mellitus [email or web address] Not available 10/24 20:24:40 Mother Hypertensive disorder Not available 10/24 20:24:50 Maternal Grandfather Diabetes mellitus [email or web address] Not available 10/24 20:24:40 Medical History Condition Response Allergies (Food, seasonal, environmental ) N Other N Breast Cancer N Drug/Latex Allergies/Reactions N Blood Transfusion N Dermatologic Disorders N Lung Disease N Defects or Inherited Disease N Breast Problem Y Gestational Diabetes N Hematologic disorders N Anesthesia Complications N History of STI Y Deep Vein Thrombosis N Polycystic ovary syndrome N Anxiety Disorder N Autoimmune disease N Arthritis N Infertility N Polyps N Acid Reflux (GERD) N History of abnormal pap Y Cancer N Stroke N Varicosities N Neurologic/Epilepsy N Endometriosis N High Cholesterol N Headaches N Fibromyalgia N Kidney Disease N Heart Problems N Kidney or Bladder Problems N Thyroid Problems N GI Problems N Eating Disorder N Anemia N Art (IVF or FET) N Psychiatric Illness N Ovarian Cancer N Diabetes N Pulmonary (TB, Asthma) N Hepatitis/Liver Disease N No Past Medical History N Eczema N Urinary Tract Infection N Abuse/Domestic Violence N Asthma N Trauma/Violence N Depression/ depression N Heart Disease N Pre-Eclampsia N Hypertension N Osteoporosis N Thrombophilias N Gynecological History Statement/Question Response Abnormal Pap Yes Flow Moderate Date of Last Mammogram 12/26/2023 Date of LMP 07/19/2024 N On BCP's at Conception? N STIs/STDs Yes Was last menstrual period normal Y HPV Vaccine N Colposcopy 12/12/2022 Duration of Flow (days) 5 Current Control Method Tubal Ligat ion Age at First Child 13 Are cycles usually normal Y Frequency of Cycle (Q days) 28 Sexually Active? Y Menses Monthly Y Date of DEXA bone scan Age of first menstrual cycle 8 Date of Last Pap Smear 06/17/2024 Sexual Problems? N LMP Approximate N Obstetrics History GPAL:G 4 P 3 0 1 3 Type Value Full Term 3 Spontaneous 1 Living 3 Total 4 Past Encounters Encounter ID Performer Location Encounter Start Date Encounter Closed Date Diagnosis/Indication Diagnosis SNOMED-CT Code Diagnosis ICD10 Code Diagnosis Note [id number] Beth Zurita [facility] [address] [address] 10/01/2021 13:59:09 10/01/2021 15:20:28 Gynecologic examination 76411194 Z01.419 Z11.51 Take Calcium with Vitamin D 1200mg daily if not receiving in daily diet. It is strongly advised to have an annual flu shot and up can obtain at most pharmacies . If you have not had a TDap shot in the last 10 years you should obtain one as well. Discussed with patient & provided with informatio n regarding Gardisil vaccine to prevent the 4 strains for HPV that cause cervical cancer if under age 26. Encourage safe sexual practices, to use condoms and limit partners if not already in a monogamous relationsh ip. Do monthly self breast exams. Have mammogram yearly or every other year depending on family history. BRCA testing is now available for patients with strong genetic history of female cancer. If interested contact the office. Engage in daily exercise of low impact aerobic exercise 45-60 minutes 4-5 times weekly. Avoid tobacco and illicit drugs as well as using moderation with alcohol intake less than 1-2 8 oz beverages daily. This lifestyle behavior pattern will lead to less health conditions and longer life span. If BMI greater than 25 weight watchers or dietary consult advised. Patient received above instructio ns, and questions have been answered. If you have any questions please call or respond to this email. Patient was made aware of the patient portal and may obtain a paper copy of today's plan if desired. Pain of breast 24546922 N64.4 Discharge from nipple 54 783993 N64.52 History of discharge from this nipple but it was bloody in the past. Now it is green and persistent discomfort in the outer aspect of her left breast. Pt will call to schedule imaging and schedule 6 week follow up with us. [id number] CONSTANTINO Zuniga [facility] [address] [address] 10/07/2022 10:24:27 10/07/2022 13:02:55 Breast lump 56614569 N63.0 Gynecologi c examination 86244593 Z01.419 Z11.51 Take Calcium with Vitamin D 1200mg daily if not receiving in daily diet. It is strongly advised to have an annual flu shot and up can obtain at most pharmacies . If you have not had a TDap shot in the last 10 years you should obtain one as well. Discussed with patient & provided with informatio n regarding Gardisil vaccine to prevent the 4 strains for HPV that cause cervical cancer if under age 26. Encourage safe sexual practices, to use condoms and limit partners if not already in a monogamous relationsh ip. Do monthly self breast exams. Have mammogram yearly or every other year depending on family history. BRCA testing is now available for patients with strong genetic history of female cancer. If interested contact the office. Engage in daily exercise of low impact aerobic exercise 45-60 minutes 4-5 times weekly. Avoid tobacco and illicit drugs as well as using moderation with alcohol intake less than 1-2 8 oz beverages daily. This lifestyle behavior pattern will lead to less health conditions and longer life span. If BMI greater than 25 weight watchers or dietary consult advised. Patient received above instructio ns, and questions have been answered. If you have any questions please call or respond to this email. Patient was made aware of the patient portal and may obtain a paper copy of today's plan if desired. WWEBC - BTLNormal, monthly mensesRece nt (+) gon[facility]hea at [facility], completed treatment. Partner completed treatment as well. Feeling well since treatment, symptoms have resolved.L ast pap 10/01/2021 NILM, HPV (+) - all paps normal previous to thisRepeat pap done todayTOC STI testing added to papLeft breast with multiple masses palpated in the outer quadrant. Right breast with likely fibrocysti c breast changes. She saw a breast specialist for left nipple discharge/ left breast pain in 2019, diagnosed with benign left breast duct ectasia. Patient thinks left breast masses are a new finding.We agreed to diagnostic breast imaging, once imaging is complete - will send referral for patient to f/u with Dr. Charles larios who she saw previously .Her family hx is unknown per patientEnc ouraged patient to establish care with a [facility] in 1 year or sooner if needed Gonorrhea [id number] A54.9 [id number] Aminta Soria [facility] [address],[place] [address] 11/21/2021 16:26:48 11/21/2021 16:51:27 Urinary symptoms 194039416 R39.9 [id number] CONSTANTINO Zuniga [facility] [address],[place] [address] 08/29/2022 09:39:38 08/29/2022 11:39:57 Vaginitis 74610701 N76.0 Vulvar irritation noted on exam. No obvious lesions notedSuspe ct yeastvagin itis panel sentHSV PCR sentSTI endocervic al testing sentBlood STI panel orderedRx sent for yeastVulva r care guidelines discussed in-depth. Discontinu e use of scented soap Venereal d isease screening 337799725 Z11.3 Sexually t ransmitted infectious disease 2558511 A64 Fatigue 20190399 R53.83 Will check CBCEncoura ged patient to f/u with PCP as wellWill await results, may need additional labs at upcoming WWE Urinary symptoms 8604302 08 R39.9 UA today suggestive for possible UTIWill start treatment based on symptoms and UARx sentCultur e sent Inguinal lymphadenopathy 246967802 R59.0 No obvious inguinal lymph node enlargemen t noted todayCBC orderedSTI testing orderedTre atment started for UTI/yeastN o fevers, chills, flank pains, or flu-like symptoms todayED precaution s discussed Time spent in visit is a total of 45 mins with at least 50% of visit consisting of counseling and review of plan of care. Pain in pelvis 60923997 R10.2 No pelvic pain present today [id number] Luli Gee DRE [facility] [address],[place] [address] 09/04/2022 15:57:42 09/04/2022 16:38:20 Gonorrhea 00854026 A54.9 Sexually t ransmitted infectious disease 1681796 A64 [id number] Nhi Zhou [facility] [address],[place] [address] 10/24/2022 10:01:35 10/24/2022 11:13:50 Screening procedure 48176927 Z13.9 Atypical s quamous cells of undetermined significance on cervical Papanicolaou smear 047296877 R87.610 ASCUS with +HR HPV x 1 (2021)Pap normal with HR +HPV (2020) See procedure notes.Post -procedure instructio ns reviewed with understand ing verbalized .Will contact with results & next steps in plan of care. Counseled on Pap/HPV guidelines /Testing/R esults with understand ing verbalized .All questions answered to patient satisfacti on. Booklet & additional resources regarding pap smear/HPV/ Pap results given. [email or web address] w.cancer.g ov/types/c ervical/un derstandin g-abnormal -hpv-and-p ap-test-re sults/unde rstanding- cervical-c hanges.pdf Human nalini llomavirus deoxyribonucleic acid detected, high risk on cervical specimen 146548968 R87.810 Overactive urinary bladder 647756307 N32.81 Going to [place] on tour with zoroastrianism [facility] ed about her OABTrial of Oxybutynin Contact if issues Counseled on medication R/B's, Most common side effects, & use. All questions were answered to patient satisfacti on. [id number] Presley Drew MD [facility] [address] [address] 11/21/2022 10:05:20 11/21/2022 11:26:38 Preoperative state 47061114 Z78.9 Cervical intraepithelial neoplasia grade III with severe dysplasia 814894498 D06.9 This patient is a 32-year-ol d female a high-grade dysplasia cervical biopsy.. We discussed HPV, cervical dysplasia, cervical cancer. We discussed HPV transmissi on, natural history, and dormancy. We discussed cervical dysplasia screening, diagnosis, treatment. She was given precaution s about follow-up. She was warned of the potential cervical cancer as an outcome in this situation. We discussed LEEP procedure. We discussed the procedure in detail. I showed her video. We discussed the risks, benefits, and alternativ es. We spent 40 minutes face-to-fa ce. [id number] Presley Drew MD [facility] [address],[place] [address] 12/12/2022 10:49:59 12/13/2022 11:20:06 Screening procedure 38768582 Z13.9 Dysplasia of cervix 7339 1008 N87.9 LEEP procedure was performed. She tolerated well. No complicati ons. [id number] Presley Drew MD [facility] [address],[place] [address] 12/19/2022 14:26:24 12/19/2022 15:41:49 Dysplasia of cervix 00930756 N87.9 32-year-ol d female who presents for follow-up on cervical dysplasia. She had LEEP procedure. We reviewed the results. The margins of the pathology specimens were free of the high-grade dysplasia that were found. We agreed repeat Pap smear in 6 months. She has no complaints other than some abnormal discharge that is typical for this procedure [id number] Presley Drew MD [facility] [address],[place] [address] 06/16/2023 10:15:05 06/16/2023 11:43:19 Discharge from nipple 51819515 N64.52 Dysplasia of cervix 7339 1008 N87.9 33-year-ol d female presents for follow-up on cervical dysplasia and LEEP procedure. She had a Pap smear. Her cervix appears normal with some ectropion from the procedure. Reports some postcoital bleeding. This would likely be because of the ectropion. Follow-up on Pap. she will return if bleeding persists for evaluation . Reports nipple discharge. To check hormones. Patient has weight gain is concerned about hormones well. [id number] Presley Drew MD [facility] [address] [address] 12/17/2023 14:00:19 12/18/2023 08:38:25 Dysplasia of cervix 59200866 N87.9 33-year-ol d female who presents for follow-up on cervical dysplasia. Repeat Pap smear today. Pelvic exam was normal. Pap smear was collected. We discussed history of breast issues. We agreed to refer to [facility] . [id number] Presley Drew MD [facility] [address] [address] 06/17/2024 09:43:11 06/17/2024 10:39:51 Gynecologic examination 23567406 Z01.419 Z11.51 Annual gynecologi charlette exam performed. Patient will come back in a year unless there are new symptoms. Suggest Calcium with Vitamin D if not eating in diet. Patient advised to get annual flu shot. Recommend yearly physicals and preform monthly breast exams. Genetic testing is available for patients with family history of cancer. Engage in safe sexual practices, use condoms. Encouraged to have daily exercise. Avoid tobacco and illicit drugs, moderation of alcohol. If BMI greater than 25 dietary consult advised. If you have any questions please call or email. mammogram- na colon cancer screening -na DEXA scan- na Pap smear- ordered laboratory evaluation - today Dysmenorrhea 504208380 N 94.6 [id number] Chloe Chaney [facility] [address] [address] 06/24/2024 16:56:10 06/24/2024 17:43:02 Dysmenorrhea 508718924 N94.6 [id number] Presley Drew MD [facility] [address] [address] 07/10/2024 11:19:08 07/10/2024 12:14:06 Dysmenorrhea 957537283 N94.6 34-year-ol d female with severe dysmenorrh ea and menorrhagi a. . She has longstandi ng very heavy bleeding. Her menses are regular. However, they require double protection . Patient has accidents, getting blood on her bedding and clothing. Is affected work. She changes a pad or tampon every hour. She leaks blood around the pad and tampon. This bleeding has a profound impact on her quality of life and her activities of daily living. Pain of her periods has profound. She misses work. It affects her quality of life and activities of daily living. It affects her relationsh ips. Patient is unable to take hormones. She is unable take any hormonal conception contracept ion. Endometria l ablation is unlikely to treat the patient's pain effectivel y. It is not indicated for pain. It would be effective likely for the menorrhagi a. We discussed all the treatment options in detail. We agreed to proceed with total laparoscop ic hysterecto my that is robot assisted +salpingec adam. The patient understand s the procedure. The procedure was described to the patient in great detail. the patient also understand s the risks. The risks were also explained in detail. She understand s that injuries May occur during surgery. She understand s these injuries can result in hospitaliz ation, more surgery, and severe illness. She understand s there is risk of hemorrhage and infection. I spent over 30 minutes on the patient's care in total. Menorrhagia 116762518 N9 2.0 [id number] Presley Drew MD [facility] [address] [address] 08/12/2024 14:54:54 08/12/2024 16:18:47 Menorrhagia 639371166 N92.0 this patient is a 34-year-ol d female with severe menorrhagi a and dysmenorrh ea. We have agreed to perform robotic assisted total hysterecto my with bilateral salpingect everardo. She understand s the risks, benefits, and alternativ es. She has completed the informed consent process and is ready to proceed Health Concerns Section Related Observation LastModified by Organization Detai ls LastModified Time None Recorded Concern Status LastModified by Organization Details LastModified Time None Recorded Advance Directives Directive N: Payers Encounter Date Sequence Insurance Name Policy Number Policy Mcrae Covered Member ID Mcrae Member ID Guarantor Name 12/17/2023 1 [facility] [id number] Cody I Coad [id number] Татьяна N Coad 06/17/2024 1 [facility] [id number] Cody N Coad [id number] Татьяна N Coad 06/24/2024 1 [facility] [id number] Cody N Coad [id number] Татьяна N Coad 07/10/2024 1 [facility] [id number] Cody N Coad [id number] Татьяна N Coad 08/12/2024 1 [facility] [id number] Cody N Coad [id number] Татьяна N Coad Notes Date Note Type Note Provider Name and Address Organization Details Recorded Time 12/17/2023 text/html 33-year-old femmckenzie espino who presents for follow-up on cervical dysplasia. Repeat Pap smear today. Pelvic exam was normal. Pap smear was collected. We discussed history of breast issues. We agreed to refer to [facility]. Presley Drew MD [address], [place], [address], [facility] 12/17/2023 20:09:59 06/17/2024 text/html Annual GYNReport ed bypatient.History: no change in interval history Menstrual cycle:Severe dysmenorrhea Urinary symptoms:No hematuria; No incontinence Vulva:No genital lesion Vagina:Normal vaginal discharge Breast:No breast pain; No breast lump Current Contraception:Sati sfied with current contraception; Tubal ligation Sexual complaints:No sexual complaints; No pain during intercourse Menopausal Symptoms:No menopausal symptoms Psychological symptoms:No depression; No anxiety Preventive measures:Encourage self breast examination; Encourage regular exercise Presley Drew MD [address], [place], [address], [facility] 06/17/2024 10:37:29 07/10/2024 text/html 34-year-old fema le with severe dysmenorrhea and menorrhagia. . She has longstanding very heavy bleeding. Her menses are regular. However, they require double protection. Patient has accidents, getting blood on her bedding and clothing. Is affected work. She changes a pad or tampon every hour. She leaks blood around the pad and tampon. This bleeding has a profound impact on her quality of life and her activities of daily living. Pain of her periods has profound. She misses work. It affects her quality of life and activities of daily living. It affects her relationships. Patient is unable to take hormones. She is unable take any hormonal conception contraception. Endometrial ablation is unlikely to treat the patient's pain effectively. It is not indicated for pain. It would be effective likely for the menorrhagia. We discussed all the treatment options in detail. We agreed to proceed with total laparoscopic hysterectomy that is robot assisted +salpingectomy. The patient understands the procedure. The procedure was described to the patient in great detail. the patient also understands the risks. The risks were also explained in detail. She understands that injuries May occur during surgery. She understands these injuries can result in hospitalization, more surgery, and severe illness. She understands there is risk of hemorrhage and infection.I spent over 30 minutes on the patient's care in total. Presley Drew MD [address], [place], [address], [facility] 07/10/2024 12:13:33 08/12/2024 text/html this patient is a 34-year-old female with menorrhagia. We have agreed to perform robotic assisted total hysterectomy with bilateral salpingectomy. The patient understands the procedure. The procedure was described to the patient in great detail. the patient also understands the risks. The risks were also explained in detail. She understands that injuries May occur during surgery. She understands these injuries can result in hospitalization, more surgery, and severe illness. She understands there is risk of hemorrhage and infection. Presley Drew MD [address], [place], [address], [facility] 08/12/2024 15:43:46 OBGyn Episode Ob Episode Information Episode Created Date Number of Fetuses Patient Bloodtype Patient rh Status Prepregnancy Weight lbs Domestic Partner Domestic Partner Phone Father Name Vault Clerk Status 10/01/20 21 1 CLOSED Fetus Data First Name Last Name Admitted to NICU Weight (g) Sex Living Outcome Pediatric Complications Fetus ID Race Codes Race Delivery Type 4110.45 0704 M Full Term [id number] Vaginal Delivery Rich Calculation Initial Rich Date Initial Exam Date Initial Exam Provider Initial Ultrasound Date Last Menstrual Period Date Ultra Sound Weeks Gestation 0 Eighteen To Twenty Week Rich Update Ultra Sound Date Fundal Height At Umbil Quickening Date Ultra Sound Latest Weeks Gestation Final Rich Confirmed By Final Rich Confirmed Date Final Rich Date Ultra Sound Latest Days Gestation 0 0 Menstrual History Last Menstrual Date Menses Monthly On Bcp Conception Prior Menses Frequency Hcg Plus Date Menarche Onset Age Delivery Information Delivery Date Delivery Type Labor Anesthesia Weeks Gestation Incision Type Labor Labor Length Hrs Delivered By Post Complications Tubal Sterilization Discharge Date Comments 9 38 Discharge Information Feeding Method Contraceptive Method Maternal HG B and HCT Levels Ob Episode Information Episode Created Date Number of Fetuses Patient Bloodtype Patient rh Status Prepregnancy Weight lbs Domestic Partner Domestic Partner Phone Father Name Vault Clerk Status 10/01/20 21 1 CLOSED Fetus Data First Name Last Name Admitted to NICU Weight (g) Sex Living Outcome Pediatric Complications Fetus ID Race Codes Race Delivery Type , Spontane ous [id number] Rich Calculation Initial Rich Date Initial Exam Date Initial Exam Provider Initial Ultrasound Date Last Menstrual Period Date Ultra Sound Weeks Gestation 0 Eighteen To Twenty Week Rich Update Ultra Sound Date Fundal Height At Umbil Quickening Date Ultra Sound Latest Weeks Gestation Final Rich Confirmed By Final Rich Confirmed Date Final Rich Date Ultra Sound Latest Days Gestation 0 0 Menstrual History Last Menstrual Date Menses Monthly On Bcp Conception Prior Menses Frequency Hcg Plus Date Menarche Onset Age Delivery Information Delivery Date Delivery Type Labor Anesthesia Weeks Gestation Incision Type Labor Labor Length Hrs Delivered By Post Complications Tubal Sterilization Discharge Date Comments 5 Discharge Information Feeding Method Contraceptive Method Maternal HG B and HCT Levels Ob Episode Information Episode Created Date Number of Fetuses Patient Bloodtype Patient rh Status Prepregnancy Weight lbs Domestic Partner Domestic Partner Phone Father Name Vault Clerk Status 10/01/20 21 1 CLOSED Fetus Data First Name Last Name Admitted to NICU Weight (g) Sex Living Outcome Pediatric Complications Fetus ID Race Codes Race Delivery Type 4082.32 8 M Full Term [id number] Vaginal Delivery Rich Calculation Initial Rich Date Initial Exam Date Initial Exam Provider Initial Ultrasound Date Last Menstrual Period Date Ultra Sound Weeks Gestation 0 Eighteen To Twenty Week Rich Update Ultra Sound Date Fundal Height At Umbil Quickening Date Ultra Sound Latest Weeks Gestation Final Rich Confirmed By Final Rich Confirmed Date Final Rich Date Ultra Sound Latest Days Gestation 0 0 Menstrual History Last Menstrual Date Menses Monthly On Bcp Conception Prior Menses Frequency Hcg Plus Date Menarche Onset Age Delivery Information Delivery Date Delivery Type Labor Anesthesia Weeks Gestation Incision Type Labor Labor Length Hrs Delivered By Post Complications Tubal Sterilization Discharge Date Comments 1 38 Discharge Information Feeding Method Contraceptive Method Maternal HG B and HCT Levels Ob Episode Information Episode Created Date Number of Fetuses Patient Bloodtype Patient rh Status Prepregnancy Weight lbs Domestic Partner Domestic Partner Phone Father Name Vault Clerk Status 10/01/20 21 1 CLOSED Fetus Data First Name Last Name Admitted to NICU Weight (g) Sex Living Outcome Pediatric Complications Fetus ID Race Codes Race Delivery Type 3572.03 7 M Full Term [id number] Vaginal Delivery Rich Calculation Initial Rich Date Initial Exam Date Initial Exam Provider Initial Ultrasound Date Last Menstrual Period Date Ultra Sound Weeks Gestation 0 Eighteen To Twenty Week Rich Update Ultra Sound Date Fundal Height At Umbil Quickening Date Ultra Sound Latest Weeks Gestation Final Rich Confirmed By Final Rich Confirmed Date Final Rich Date Ultra Sound Latest Days Gestation 0 0 Menstrual History Last Menstrual Date Menses Monthly On Bcp Conception Prior Menses Frequency Hcg Plus Date Menarche Onset Age Delivery Information Delivery Date Delivery Type Labor Anesthesia Weeks Gestation Incision Type Labor Labor Length Hrs Delivered By Post Complications Tubal Sterilization Discharge Date Comments 3 40 Discharge Information Feeding Method Contraceptive Method Maternal HG B and HCT Levels
--- OUTSIDE RECORDS SUMMARY | 2025-02-02 10:43 | XMS_ITS | Referral Summary ---
Author Organization [facility] [address] [place] [address] Care Team Providers Care Food Vendor Name Role Phone Florentino Hebert DO Primary Care Provider + No, Physician Unavailable Encounters Date Type Department Care Team Description 01/27/2025 Results Follow-Up [facility] Primary Care [address] [facility] [address] [place] [address] Florentino Hebert DO 01/27/2025 10:37 AM CDT - 01/27/2025 11:59 PM CDT Hospital Encounter [facility] - Breast Imaging [address] [place] [address] 8 [place] [address] Breast asymmetry Discharge Disposition: Discharge to home or self care 01/25/2025 Orders Only [facility] [address] [place] [address] Floor 8 [place] [phone] Shonda Thomson NP Breast asymmetry (Primary Dx) 01/25/2025 Results Follow-Up [facility] [address] [place] [address] 8 [place] [address] Shonda Thomson NP 01/24/2025 1:30 PM CDT Office Visit [facility] [address] [place] [address] 8 [place] [phone] Shonda Thomson NP History of abnormal mammogram (Primary Dx); Encounter for screening mammogram for malignant neoplasm of breast; Hx of nipple discharge 01/24/2025 1:21 PM CDT - 01/24/2025 11:59 PM CDT Hospital Encounter [facility] - Breast [facility] [address] [facility] [address] [place] [address] History of abnormal mammogram Discharge Disposition: Discharge to home or self care 01/03/2025 Orders Only [facility] [address] [facility] Floor 8 [place] [phone] Shonda Thomson NP History of abnormal mammogram (Primary Dx) 11/24/[address] [facility] Primary Care [facility] [address] [place] [address] Florentino Hebert, Additional Services Or Orders from Last 3 Months Allergies No known active allergies Medications mv-min/iron/folic /calcium/vitK (WOMEN'S MULTIVITAMIN ORAL)Indications: prevent vitamin Deficiency Take 1 tablet by mouth every morning Active ascorbic acid (VITAMIN C) 500 mg tablet,chewable Acti ve Active Problems Problem Noted Date Diagnosed Date History of abnormal mammogram 02/04/2024 Mass of left breast 12/06/2022 Multiple gastric ulcers 08/07/2022 Iron deficiency 04/18/2022 Overview (04/18/2022): Added automatically from request for surgery [id number] Anemia 04/18/2022 Overview (04/18/2022): Added automatically from request for surgery [id number] Immunizations Immunization Administration Dates Next Due Hep A, Adult 08/07/2022 Influenza, Unspecified 09/26/2023(Deferr ed: Patient Refused),08/07/2022(Deferred: Patient Refused),08/07/2022(Deferred: Patient Refused),08/27/2021(Deferred: Patient Refused) Tdap 08/07/2022 Social History Tobacco Use Types Packs/Day Years Used Date Smoking Tobacco: Former Cigarettes Q uit: 2020 Smokeless Tobacco: Never Tobacco Cessation:Counseling Given: Not Answered Alcohol Use Standard Drinks/Week Comments Yes 2 [...] on file Sexual Orientation Not on file Last Filed Vital Signs Vital Sign Reading Time Taken Comments Blood Pressure 106/52 12/30/2023 2:25 PM 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 APPRENTICE Pulse 80 12/30/2023 2:25 PM INSTRUMENT TECHNICIAN APPRENTICE Temperature 36.5 C (97.7 F) 12/30/2023 2:25 PM INSTRUMENT TECHNICIAN APPRENTICE Respiratory Rate 16 12/30/2023 2:25 PM INSTRUMENT TECHNICIAN APPRENTICE Oxygen Saturation 99% 12/30/2023 2:25 PM INSTRUMENT TECHNICIAN APPRENTICE Inhaled Oxygen Concentration - - Weight 77.9 kg (171 lb 12.8 oz) 01/24/2025 1:08 PM CDT Height 165.1 cm (5' 5 ) 01/24/2025 1:08 PM CDT Body Mass Index 28.59 01/24/2025 1:08 PM CDT Plan of Treatment Not on file Procedures Procedure Name Priority Date/Time Associated Diagnosis Comments DIAGNOSTIC MAMMOGRAM RIGHT W MARCIO Schedule Routine, Read Routine (OP Routine) 01/27/2025 10:57 AM CDT Breast asymmetry SCREENING MAMMOGRAM BILATERAL W MARCIO Schedule Routine, Read Routine (OP Routine) 01/24/2025 1:47 PM CDT History of abnormal mammogram from Last 3 Months Results * Diagnostic Mammogram Right W Marcio (01/27/2025 10:57 AM CDT) Anatomical Region Laterality Modality Breast Right Mammography 01/27/2025 11:1 0 AM CDT Impressions 01/27/2025 11:10 AM CDT No mammographic evidence of malignancy. OVERALL FINAL ASSESSMENT: BI-RADS Category 1: Negative. RECOMMENDATION: Annual screening mammography is recommended. Electronically signed by: Nhi Thurman M.D. Narrative 01/27/2025 11:10 AM CDT EXAMINATION: RIGHT UNILATERAL DIGITAL DIAGNOSTIC MAMMOGRAM AND DIGITAL BREAST TOMOSYNTHESIS HISTORY: 35-year-old female with history of prior workups for nipple discharge and palpable abnormalities in the LEFT breast which were ultimately benign undergoing annual screening mammography without current breast complaints. She was called back for a RIGHT breast asymmetry on her screening mammogram. COMPARISON: Multiple priors, most recently 01/24/2025 and dating back to 02/21/2015 TECHNIQUE: Full field digital mammographic views of the RIGHT breast were performed, including computer aided detection (CAD) and digital breast tomosynthesis (DBT). BREAST PARENCHYMAL COMPOSITION: The breasts are heterogeneously dense, which may obscure small masses. MAMMOGRAM FINDINGS: With additional imaging, no persistent mass, grouped micro-calcification, or architectural distortion is seen. Findings are most consistent with summation artifact. These findings were discussed with the patient by Dr. Thurman. Procedure Note Cuca, Nhi Cruz MD - 01/27/2025 EXAMINATION: RIGHT UNILATERAL DIGITAL DIAGNOSTIC MAMMOGRAM AND DIGITAL BREAST TOMOSYNTHESIS HISTORY: 35-year-old female with history of prior workups for nipple discharge and palpable abnormalities in the LEFT breast which were ultimately benign undergoing annual screening mammography without current breast complaints. She was called back for a RIGHT breast asymmetry on her screening mammogram. COMPARISON: Multiple priors, most recently 01/24/2025 and dating back to 02/21/2015 TECHNIQUE: Full field digital mammographic views of the RIGHT breast were performed, including computer aided detection (CAD) and digital breast tomosynthesis (DBT). BREAST PARENCHYMAL COMPOSITION: The breasts are heterogeneously dense, which may obscure small masses. MAMMOGRAM FINDINGS: With additional imaging, no persistent mass, grouped micro-calcification, or architectural distortion is seen. Findings are most consistent with summation artifact. These findings were discussed with the patient by Dr. Thurman. IMPRESSION: No mammographic evidence of malignancy. OVERALL FINAL ASSESSMENT: BI-RADS Category 1: Negative. RECOMMENDATION: Annual screening mammography is recommended. Electronically signed by: Nhi Thurman M.D. Shonda Thomson NP IM MAMMO PROCEDURES Final Result * Screening Mammogram Bilateral W Marcio (01/24/2025 1:47 PM CDT) Anatomical Region Laterality Modality Breast Bilateral Mammography Narrative 01/25/2025 11:38 AM CDT Mammogram Technique: Bilateral Digital Breast Tomosynthesis, Bilateral C-view 2D Screening mammogram. Views obtained: bilateral craniocaudal and bilateral mediolateral oblique. Computer Aided Detection was performed. Mammogram Findings: The present examination has been compared to prior imaging studies performed at [facility] on 12/05/2022 and 01/22/2024, and at [facility] on 10/14/2022. The breasts are heterogeneously dense, which may obscure small masses. There is asymmetry in the anterior upper mediolateral oblique view of the right breast. There is no suspicious abnormality in the left breast. Impression: Asymmetry in the right breast requires additional evaluation. Diagnostic mammogram and possible ultrasound of the right breast are recommended at this time. OVERALL FINAL ASSESSMENT: BI-RADS CATEGORY 0: Incomplete: Need additional imaging evaluation. Procedure Note Luh Laguerre MD - 01/25/2025 Mammogram Technique: Bilateral Digital Breast Tomosynthesis, Bilateral C-view 2D Screening mammogram. Views obtained: bilateral craniocaudal and bilateral mediolateral oblique. Computer Aided Detection was performed. Mammogram Findings: The present examination has been compared to prior imaging studies performed at [facility] on 12/05/2022 and 01/22/2024, and at [facility] on 10/14/2022. The breasts are heterogeneously dense, which may obscure small masses. There is asymmetry in the anterior upper mediolateral oblique view ofthe right breast. There is no suspicious abnormality in the left breast. Impression: Asymmetry in the right breast requires additional evaluation. Diagnostic mammogram and possible ultrasound of the right breast are recommended at this time. OVERALL FINAL ASSESSMENT: BI-RADS CATEGORY 0: Incomplete: Need additional imaging evaluation. Shonda Thomson CUSTOMER CARE PROFESSIONAL IMG MAMMO PROCEDURES Final Result from Last [address] Mon[address] Insurance [facility] CHOICE PLUS [facility] HMO/PPO Address: [place] [address] [facility] CHOICE [facility] HMO/PPO Address: [place] [address] [facility] CHOICE [facility] HMO/PPO [place] [address] Care Teams Food Vendor Relationship Specialty Start Date End Date Florentino Hebert DO [facility] [id number] PCP - General Family Medicine 01/23/22 No, Physician 11/21/21
--- OUTSIDE RECORDS SUMMARY | 2025-02-02 10:43 | XMS_ITS | Clinical Summary ---
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 Gender Identity Not on file Sexual Orientation Not on file Plan of Treatment Health Maintenance Due Date Last Done Comments Hepatitis C Virus (HCV) Screening 1988 TdaP Immunization 1988 Hepatitis B Immunization (1 of 3 - 19+ 3-dose series) 01/25/2007 Pap Smear 01/25/2009 Cervical Cancer Screening (CCS) 01/25/2018 HPV/Cotest 01/25/2018 Influenza Immunization (#1) 2024 SARS-COV-2 Immunization ( season) 2024 Respiratory Syncytial Virus (RSV) Immunization (Adult) (1 - 1-dose 75+ series) 01/25/2063 Meningococcal Immunization (ACWY) Aged Out No longer eligible based on patient's age to complete this topic Pneumococcal Immunization Combined Aged Out No longer eligible based on patient's age to complete this topic Rotavirus Immunization Aged Out No lo nger eligible based on patient's age to complete this topic
--- OUTSIDE RECORDS SUMMARY | 2025-02-02 10:43 | XMS_ITS | Clinical Summary ---
Author Organization [facility] [address] [place] [address] Care Team Providers Care Turbogenerator Operator Name Role Phone Florentino Hebert Primary Care Provider + No, Physician Unavailable Allergies No known active allergies Medications mv-min/iron/folic /calcium/vitK (WOMEN'S MULTIVITAMIN ORAL)Indications: prevent vitamin Deficiency Take 1 tablet by mouth every morning Active ascorbic acid (VITAMIN C) 500 mg tablet,chewable Acti ve Active Problems Problem Noted Date Diagnosed Date History of abnormal mammogram 02/04/2024 Mass of left breast 12/06/2022 Multiple gastric ulcers 08/07/2022 Iron deficiency 04/18/2022 Overview (04/18/2022): Added automatically from request for surgery [id number] Anemia 04/18/2022 Overview (04/18/2022): Added automatically from request for surgery [id number] Encounters Date Type Department Care Team Description 01/27/2025 10:37 AM CDT - 01/27/2025 11:59 PM CDT Hospital Encounter [facility] [place] - Breast Imaging [address] [facility] Floor 8 [place] [address] Breast asymmetry Discharge Disposition: Discharge to home or self care 01/27/2025 Results Follow-Up [facility] Primary Care [address] [facility] [address] [place] [phone] Florentino Hebert DO 01/25/2025 Orders Only [facility] [address] [place] [address] 8 [place] [phone] Shonda Thomson NP Breast asymmetry (Primary Dx) 01/25/2025 Results Follow-Up [facility] [address] [place] [address] 8 [place] [address] Shonda Thomson NP 01/24/2025 1:30 PM CDT Office Visit [facility] [address] [place] [address] 8 [place] [phone] Shonda Thomson NP History of abnormal mammogram (Primary Dx); Encounter for screening mammogram for malignant neoplasm of breast; Hx of nipple discharge 01/24/2025 1:21 PM CDT - 01/24/2025 11:59 PM CDT Hospital Encounter [facility] - Breast Imaging [address] [place] [address] Floor 8 [place] [address] History of abnormal mammogram Discharge Disposition: Discharge to home or self care 01/03/2025 Orders Only [facility] [address] [place] [address] 8 [place] [phone] Shonda Thomson NP History of abnormal mammogram (Primary Dx) 11/24/2024 Telephone [facility] Primary Care [address] [place] [address] [address] [place] [address] Florentino Hebert DO Additional Services Or Orders from Last 3 Months Immunizations Immunization Administration Dates Next Due Hep A, Adult 08/07/2022 Influenza, Unspecified 09/26/2023(Deferr ed: Patient Refused),08/07/2022(Deferred: Patient Refused),08/07/2022(Deferred: Patient Refused),08/27/2021(Deferred: Patient Refused) Tdap 08/07/2022 Surgical History Surgery Date Site/Laterality Comments DILATION AND CURETTAGE OF UTERUS for missed AB TUBAL LIGATION DILATION AND CURETTAGE OF UTERUS Medical History Medical History Date Comments Anemia Diverticulosis Urinary tract infection Anxiety Miscarriage HPV (human papilloma virus) infection Family History Medical History Relation Name Comments No Known Problems Father Diabetes Mother Relation Name Status Comments Father Alive Mother Alive Social History Tobacco Use Types Packs/Day Years [...] on file Sexual Orientation Not on file Obstetrics History Last Filed Vital Signs Vital Sign Reading Time Taken Comments Blood Pressure 106/52 12/30/2023 2:25 PM PORT PURSER Pulse 80 12/30/2023 2:25 PM PORT PURSER Temperature 36.5 C (97.7 F) 12/30/2023 2:25 PM PORT PURSER Respiratory Rate 16 12/30/2023 2:25 PM PORT PURSER Oxygen Saturation 99% 12/30/2023 2:25 PM PORT PURSER Inhaled Oxygen Concentration - - Weight 77.9 kg (171 lb 12.8 oz) 01/24/2025 1:08 PM CDT Height 165.1 cm (5' 5 ) 01/24/2025 1:08 PM CDT Body Mass Index 28.59 01/24/2025 1:08 PM CDT Plan of Treatment Health Maintenance Due Date Last Done Comments Cervical Cancer Screening 1988 Hepatitis C Screening 1988 Varicella Vaccines (1 of 2 - 13+ 2-dose series) 01/25/2001 Hepatitis B Screening 01/25/2006 Depression Screening 12/29/2024 12/30/2023, 01/23/2022 Regular Well Visit/Exam 18-64 12/29/2024, 01/23/2022 Influenza Vaccine (Season Ended) 2025 DTaP/Tdap/Td Vaccine (2 - Td or Tdap) 08/07/2032 08/07/2022 HPV Vaccines Aged Out No longer eligi ble based on patient's age to complete this topic Pneumococcal vaccine <65 Aged Out No longer eligible based on patient's age to complete this topic Procedures Procedure Name Priority Date/Time Associated Diagnosis [...] the patient by Dr. Thurman. Procedure Note Nhi Thurman MD - 01/27/2025 EXAMINATION: RIGHT UNILATERAL DIGITAL [...] by: Nhi Thurman M.D. Shonda Thomson NP IMG MAMMO PROCEDURES Final Result * Screening Mammogram [...] compared to prior imaging studies performed at [facility] on 12/05/2022 and 01/22/2024, and at [facility] on 10/14/2022. The breasts are heterogeneously dense, [...] compared to prior imaging studies performed at [facility] on 12/05/2022 and 01/22/2024, and at [facility] on 10/14/2022. The breasts are heterogeneously [...] Incomplete: Need additional imaging evaluation. Shonda Thomson NP IMG MAMMO PROCEDURES Final Result from Last 3 Months Insurance [facility] Address: [facility] [address] [place] [address] [facility]/PPO Address: [address] [place] [address] [facility] H[facility]/PPO Address: [address] [place] [address] Care Teams Turbogenerator Operator Relationship Specialty Start Date End Date Florentino Hebert DO [address] [place] [address] PCP - General Family Medicine 01/23/22 No, Physician 11/21/21
== END 2025-02-02 10:18 | disposition home or self-care (01) ==
PROVIDERS: Emergency Provider Nurse Practitioner Family; PCP Family Medicine
DX: J01.90 Acute sinusitis, unspecified (principal)
CPT/HCPCS: 99213; G0463